=== PATIENT | male | born 1985 | race Caucasian/White ===

== ENCOUNTER 2016-10-21 09:52 | Emergency (ER) | payer OTHER ==
[~2016-10-21] VITALS: Wt 93.0 kg
[2016-10-21] MEDS ORDERED: DOCU-144 PO (10:26)
[2016-10-21] MEDS ORDERED: POLY17PO6 PO (10:26)
[2016-10-21] MEDS ORDERED: HYDR25SU23 PR (10:26)
[2016-10-21] MEDS ORDERED: IBUP-1542 PO (10:27)
--- NOTE | 2016-10-21 10:34 | ERD ---
ER Documentation Chief Complaint Date/Time DATE: 10/21/16 TIME: 10:29 Chief Complaint RECTAL PAIN X1 MONTH, HX OF HEMORRHOIDS, NO BLEEDING HPI This a 31-year-old male who presents to the emergency department today, complaining of rectal pain for the past 6 months to a year. Patient states he had this problem previously and was given some cream, Metamucil and Colace and his symptoms improved. States he has pain when he bears down for a bowel movement. States he is unsure if he is constipated. States he was in senior living for 2 months for alcohol-related offenses and did not have any medication during that time denies any blood in his stool. Denies anal intercourse. Denies any fevers or chills. ROS All systems reviewed and are negative except as per history of present illness. Medications Home Meds Active Scripts Ibuprofen* (Motrin*) 600 Mg Tab, 600 MG PO Q6, #30 TAB Prov:TYRONE GARCÍA PA-C 10/21/16 Docusate Sodium* (Colace*) 100 Mg Capsule, 100 MG PO TID, #30 CAP Prov:TYRONE GARCÍA PA-C 10/21/16 Polyethylene Glycol* (Miralax*) 17 Gm Powd.pack, 17 GM PO DAILY, #30 PACKET Prov:TYRONE GARCÍA PA-C 10/21/16 Hydrocortisone Acetate (Anusol-Hc) 25 Mg Supp.rect, 1 SUPP OH QHS Y for HEMORROID PAIN/ITCHING, #15 SUPP.RECT Prov:TYRONE GARCÍA PA-C 10/21/16 Allergies Allergies: Coded Allergies: No Known Allergies (Verified Allergy, Mild, 10/31/09) PMhx/Soc Medical and Surgical Hx: pt denies Surgical Hx History of Surgery: No Anesthesia Reaction: No Hx Neurological Disorder: No Hx Respiratory Disorders: No Hx Cardiac Disorders: No Hx Psychiatric Problems: No Hx Miscellaneous Medical Probl: Yes (HEMORRHOIDS) Hx Alcohol Use: Yes (OCCASIONAL) Hx Substance Use: Yes (NO LONGER USES DRUGS) Hx Tobacco Use: No Smoking Status: Never smoker Physical Exam Vitals Vital Signs Date Time Temp Pulse Resp B/P Pulse Ox O2 Delivery O2 Flow Rate FiO2 10/21/16 09:58 96.2 52 17 140/79 98 Physical Exam Const: Cooperative, no acute distress Head: Atraumatic Eyes: Normal Conjunctiva ENT: Normal External Ears, Nose and Mouth. Neck: Full range of motion..~ No meningismus. Resp: Clear to auscultation bilaterally Cardio: Regular rate and rhythm, no murmurs Abd: Soft, non tender, non distended. Normal bowel sounds : Rectal exam with no evidence of external hemorrhoids. No evidence of abscess or internal hemorrhoids. No evidence of gross blood. Patient with stool in rectal vault. Skin: No petechiae or rashes Neur: Awake and alert Psych: Normal Mood and Affect Procedures/MDM This a 31-year-old male who presents to the emergency department today complaining of rectal pain for the past 6 months to a year. Patient has had this problem in the past and took MiraLAX and Colace with symptomatic improvement. On physical exam patient does not have evidence of external or internal hemorrhoids. He is afebrile and otherwise well-appearing. There is no evidence of perianal or rectal abscess. Patient did have stool in his rectal vault and he reported symptomatic abdominal pain on occasion and pain with bearing down. Patient's symptoms of rectal pain at this time most likely related to constipation. I did however give the patient a prescription for Anusol in addition to MiraLAX and Colace and Motrin for pain. At this time the patient is stable for discharge and outpatient management. Patient should follow up with their PCP in the next 1-2 days. They may return to the emergency department sooner for any persistent or worsening of symptoms. Patient understood and agreed with the plan. Departure Diagnosis: Primary Impression: Rectal pain Condition: Fair Patient Instructions: Constipation (Adult) Referrals: [facility] YOU HAVE RECEIVED A MEDICAL SCREENING EXAM AND THE RESULTS INDICATE THAT YOU DO NOT HAVE A CONDITION THAT REQUIRES URGENT TREATMENT IN THE EMERGENCY DEPARTMENT. FURTHER EVALUATION AND TREATMENT OF YOUR CONDITION CAN WAIT UNTIL YOU ARE SEEN IN YOUR DOCTORS OFFICE WITHIN THE NEXT 1-2 DAYS. IT IS YOUR RESPONSIBILITY TO MAKE AN APPOINTMENT FOR FOLOW-UP CARE. IF YOU HAVE A PRIMARY DOCTOR --you should call your primary doctor and schedule an appointment IF YOU DO NOT HAVE A PRIMARY DOCTOR YOU CAN CALL OUR PHYSICIAN REFERRAL HOTLINE AT IF YOU CAN NOT AFFORD TO SEE A PHYSICIAN YOU CAN CHOSE FROM THE FOLLOWING [facility] [address] [facility] [address] [facility] [address] [facility] [address] [facility]. [facility] [address] [facility]. [facility] [address] Additional Instructions: Call your primary care doctor TOMORROW for an appointment during the next 1-2 days.See the doctor sooner or return here if your condition worsens before your appointment time. Take Tylenol or Motrin for pain Take MiraLAX and Colace to help with constipation and stool softener Use Anusol as needed for rectal pain TYRONE GARCÍA PA-C Oct 21, 2016 10:34
== END 2016-10-21 10:35 | disposition home or self-care (01) ==
LOC: FTE 09:52
DX: K62.89 Other specified diseases of anus and rectum (principal)
CPT/HCPCS: 99283